=== PATIENT | female | born 1995 | race Caucasian/White ===

== ENCOUNTER 2024-11-02 13:42 | Outpatient (AMB) | payer BC, SELFPAY ==
--- NOTE | 2024-11-02 13:48 | MHC.PC.OV ---
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 Allergies Seasonal Allergies Allergy (Verified 11/02/24 13:51) Congestion, watery eyes and nose lactose Adverse Reaction (Intermediate, Verified 11/02/24 13:51) Rash on face Tobacco use date assessed: 11/02/24 Dental Screening Dental Screen Date: 11/02/24 Did you have a dental visit in the last 12 months?: Yes Did you have a dental problem in the last 6 months where you did not have access to dental care?: No Was dental information given to patient?: Patient has dentist HPI HPI Comments History of Present Illness Details This is a 29-year-old female with a past medical history of anxiety, insomnia, acne and vitamin-D deficiency presenting to establish care. She transferred from my panel at [facility]. She requests a physical exam today. She is seeing a therapist once or twice a week for anxiety and depression. She also sees a psychiatrist. She reports having tried multiple anxiolytic medications that she did not tolerate. Sertraline helped significantly reduce anxiety, but it caused side effects so it was discontinued. She was more recently prescribed clonidine to take at night to help with insomnia and anxiety, but she has not tried it yet. She always feel tired, and she endorses irritability and stress. She also developed seborrheic dermatitis for which she is seeing the bottle labeler. She is on spironolactone for acne. She contemplated whether or not all of this could be due to her oral contraceptive pill so she stopped taking this 2 weeks ago. She does not desire children, and her will not proceed with a vasectomy, so they are using condoms now though she knows the limitations of this. She has discussed with a therapist whether or not she may have a diagnosis of ADHD because she is forgetful and gets overwhelmed. 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 Her is from [place], and they will be going back again this summer to visit his family for an extended time. Last Tdap 09/03/2020. She is up-to-date with her gynecologic exam. History of miscarriage in August 2021. ROS: Constitutional: No unexplained weight loss, fever, chills or night sweats. Eyes: No vision changes, blurry vision, double vision, eye pain, eye redness, eye discharge. ENT: No hearing loss, sneezing, congestion, runny nose or sore throat. Respiratory: No shortness of breath, cough or sputum production. Cardiovascular: No chest pain, chest pressure or chest discomfort. No palpitations or pedal edema. Gastrointestinal: No anorexia, nausea, vomiting or diarrhea. No abdominal pain or blood in stool. Genitourinary: No dysuria, hematuria, urinary frequency. Neurologic: No headache, dizziness, syncope, unilateral weakness, ataxia, numbness or tingling in the extremities. Musculoskeletal: No muscle pain, back pain, joint pain or swelling. Hematologic/Lymphatics: No bleeding or bruising. No painful lymph nodes. Skin: See HPI Endocrine: No cold or heat intolerance. No polyuria or polydipsia. Psychiatric: See HPI. Physical exam: Constitutional: Alert, in no distress. Head: Normocephalic. Eyes: Pupils are equal, round and reactive to light. Extraocular muscles intact. Ear, Nose and Throat: Canals clear. TMs normal. Normal nasal mucosa. No nasal discharge. No oral lesions. Neck: Supple, Full range of motion. No lymphadenopathy. No palpable thyroid masses. Respiratory: Clear to auscultation. Cardiovascular: S1 S2 regular. No murmurs. No carotid bruits. Gastrointestinal: Abdomen soft, non-tender, non-distended. Normal bowel sounds. No palpable masses. Neurologic: No focal neurological deficits. Symmetric patellar reflexes. Moves all extremities spontaneously. Sensation intact bilaterally. Skin: Patient has makeup on so facial rash was not able to be evaluated. She sees Dermatology for this. Musculoskeletal: No gross deformities. Normal range of motion. Extremities: Warm and well perfused. No clubbing, cyanosis or edema. Intact peripheral pulses bilaterally. Psychiatric: Normal mood and affect [facility] Medical History (Updated 11/03/24 @ 08:38 by ANDREA Wells) Depression Seborrheic dermatitis Acne History of miscarriage Routine physical examination Screening for cardiovascular condition Anxiety Insomnia Family History (Updated 11/02/24 @ 13:57 by Jaylin Islas MA) Mother Hyperlipemia Father Hyperlipemia Lung cancer Substance abuse Paternal Grandfather Colon cancer Maternal Grandmother Stroke FHx: mental illness Brother FHx: mental illness Substance abuse Social History (Updated 11/02/24 @ 13:58 by Jaylin Islas MA) Housing: Condominium Housing Other:: with . 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 1. Little interest or pleasure in doing things: several days 2. Feeling down, depressed, or hopeless: not at all 3. Trouble falling or staying asleep, or sleeping too much: nearly every day 4. Feeling tired or having little energy: nearly every day 5. Poor appetite or overeating: several days 6. Feeling bad about yourself - or that you are a failure or have let yourself or your family down: not at all 7. Trouble concentrating on things, such as reading the newspaper or watching television: nearly every day 8. Moving or speaking so slowly that other people could have noticed. Or the opposite - being so fidgety or restless that you have been moving around a lot more than usual: several days 9. Thoughts that you would be better off or of hurting yourself in some way: not at all Total score: 12 Depression Screening Interpretation: Positive Depression Screening Follow-up: In treatment Depression Screening Done: Yes 50372 - PHQ-9 Billing: Patient declined-do not bill Source: Developed by Drs. Varinder Helm, Margo Dickey, Heri Sarmiento and colleagues, with an educational elzbieta from [employer]. Thrive Questionnaire Date Thrive assessed: 11/02/24 I am a: Patient What is your living situation today?: I have a steady place to live Within the past 12 months, did the food you bought not last and you didn't have the money to get more?: Never true Within the past 12 months, did you worry whether your food would run out before you got money to buy more?: Never true Do you have trouble paying for medicines?: No Do you have trouble getting transportation to medical appointments?: No Do you have trouble paying your heating and electricity bill?: No Do you have trouble taking care of your child, family member or friend?: No Do you have trouble with day-to-day activities such as bathing, preparing meals, shopping, managing finances, etc.?: No Are you currently unemployed and looking for a job?: No Are you interested in more education?: No Please select the resources that you would like help with: None Currently or been in a relationship where the following occur: I choose not to answer THRIVE Score: 0 AUDIT C Alcohol Use Questionnaire (AUDIT-C) 1. How often do you have a drink containing alcohol?: Never 2. How many drinks containing alcohol do you have on a typical day when you are drinking?: 1 or 2 3. How often do you have six or more drinks on one occasion?: Never Total Score: 0 Score Reviewed/Action Taken: No SHAAN-7 AMB Questionnaire SHAAN-7 Date SHAAN - 7 assessed: 11/02/24 Feeling nervous, anxious, or on edge: 2 = More than half the days Not being able to stop or control worryin = Not at all Worrying too much about different things: 0 = Not at all Trouble relaxin = Nearly every day Being so restless that it is hard to sit still: 2 = More than half the days Becoming easily annoyed or irritable: 3 = Nearly every day Feeling afraid as if something awful might happen: 1 = Several days Total SHAAN-7 score (0-4 normal; 5-9 mild; 10-14 moderate; 15-21 severe): 11 Source: Developed by Drs. Varinder Helm, Margo Dickey, Heri Sarmiento and colleagues, with an educational elzbieta from [employer]. SHAAN-7 Assessment Billing SHAAN-7 Assessment Tool: SHAAN-7 Assessment 10502 Physical exam (Primary Care) Vital Signs: Last Vital Signs Temp 98.6 F 11/02/24 13:58 Pulse 72 11/02/24 13:58 Resp 14 11/02/24 13:58 BP 102/72 11/02/24 13:58 Pulse Ox 95 11/02/24 13:58 Oxygen Delivery Method Room Air 11/02/24 13:58 BMI result Body Mass Index 25.4 Tobacco/Smoking Status: Tobacco use Status Tobacco use date assessed 11/02/24 11/02/24 14:01 Patient Tobacco Use Status Never used Tobacco 11/02/24 14:01 e-Cigarette/Vaping Use Never Used 11/02/24 14:01 PHQ-9: PHQ-9 Score PHQ-9: Total score 12 11/02/24 14:36 Depression Screening Interpretation: Positive Depression Screening Follow-up: In treatment Thrive Assessment: Date of Thrive Assessment Date Thrive assessed 11/02/24 11/02/24 14:01 Currently or been in a relationship where the following occur: I choose not to answer Coding Level of Care Code Est Pt Prev Care 18-39y(52981) Diagnoses Anxiety F41.9 Screening for cardiovascular condition Z13.6 Routine physical examination Z00.00 Additional Codes SHAAN-7 Assessment Billing - SHAAN-7 Assessment Tool: SHAAN-7 Assessment 72303 ([id number]) Assessment & Plan Assessment & Plan (1) Anxiety: Code(s): F41.9 - Anxiety disorder, unspecified Category: Medical (2) Screening for cardiovascular condition: Code(s): Z13.6 - Encounter for screening for cardiovascular disorders Category: Medical (3) Routine physical examination: Code(s): Z00.00 - Encounter for general adult medical examination without abnormal findings Category: Medical Plan Patient is seen today for a routine physical. As part of this visit we reviewed the following issues, which are considered and essential part of preventative health in this age group: - Breast Cancer screening - Annual Commercial Real Estate Agent exam - Blood pressure screening - Cholesterol screening - Osteoporosis prevention including calcium/vitamin D intake, weight bearing exercise & smoking cessation - Nutritional and exercise counseling - Counseling of injury prevention including fire prevention, smoke alarms and seat belt usage - Screening for depression - Prevention of and/or testing for infectious diseases- declined screening (tested at [facility] per patient) - Education about skin cancer - Recommendations about immunizations - Recommendation of an eye exam - Screening for substance abuse She is closely followed by a therapist. She also sees a psychiatrist. She has stopped control to see if this helps with any of her symptoms. She requested a serum cortisol. I ordered this for the patient. Additional labs as below. She wants to see how the next few months go off of control, and she will follow up if she is still not feeling well. She is also going to discuss possible trial of ADHD meds with her therapist and psychiatrist. Sleep hygiene reviewed. Orders: Orders Lipid Panel 11/02/24 E78.5 - Hyperlipidemia, unspecified, F41.9 - Anxiety disorder, unspecified, G47.00 - Insomnia, unspecified, Z00.00 - Encounter for general adult medical examination without abnormal findings, Z13.6 - Encounter for screening for cardiovascular disorders Vitamin D 25-OH (D2 and D3) 11/02/24 F41.9 - Anxiety disorder, unspecified, G47.00 - Insomnia, unspecified, M85.80 - Other specified disorders of bone density and structure, unspecified site, Z00.00 - Encounter for general adult medical examination without abnormal findings, Z13.6 - Encounter for screening for cardiovascular disorders Cortisol Random 11/02/24 F41.9 - Anxiety disorder, unspecified, G47.00 - Insomnia, unspecified, Z00.00 - Encounter for general adult medical examination without abnormal findings, Z13.6 - Encounter for screening for cardiovascular disorders Complete Blood Count no Diff 11/02/24 F41.9 - Anxiety disorder, unspecified, G47.00 - Insomnia, unspecified, Z00.00 - Encounter for general adult medical examination without abnormal findings, Z13.6 - Encounter for screening for cardiovascular disorders TSH reflex Free T4 11/02/24 F41.9 - Anxiety disorder, unspecified, G47.00 - Insomnia, unspecified, Z00.00 - Encounter for general adult medical examination without abnormal findings, Z13.6 - Encounter for screening for cardiovascular disorders Comprehensive Met. Panel 11/02/24 F41.9 - Anxiety disorder, unspecified, G47.00 - Insomnia, unspecified, Z00.00 - Encounter for general adult medical examination without abnormal findings, Z13.6 - Encounter for screening for cardiovascular disorders
[2024-11-02 13:58] VITALS: BP 102/72; PULSE 72; RESP 14; TEMP 37; O2SAT 95; BMI 25.4
--- OUTSIDE RECORDS SUMMARY | 2024-11-02 15:57 | XMS_ITS | Data Portability ---
Author Organization [facility] ANDREA Enamorado [facility] Health Address [address], [address], [address] [address] [place] [address] Care Team Providers Care Bioassayist Name Role Phone [facility] Primary Care Provider [phone] Assessment Encounter Date Assessment Date Assessment LastModified by Organization Details LastModified Time 09/18/2024 09/18/2024 Alisha is a 29-year-old female with a PMH vitamin D deficiency, anxiety, depression and hormonal acne who presents for OB to [facility] with abdominal bloating/distent ion, skin issues, fatigue, and lactose intolerance. She feels her symptoms and skin issues are related to her gut health. 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 ASSESSMENT : 1. Abdominal bloating 2. Lactose intolerance 3. Fatigue 4. Vitamin D deficiency DIFFERENTIAL DIAGNOSIS : SIBO, celiac, H pylori, dietary triggers PLAN : 1. Check CBC, CMP, celiac, vitamin D, B12, folate, iron studies, TSH, and H pylori stool Ag 2. Increase exercise and water intake to 64 oz daily 3. Decrease carbonation 4. Lactase enzymes 5. Refer to RD 6. Follow up with CASH ROOM CLERK WHOLE PERSON THERAPY REFERRALS: RD REGISTERED DIETITIAN REASON FOR RD REFERRAL: bloating, distention, lactose intolerance DETAILED REASON FOR NON-REFERRAL: BEHAVIORAL HEALTH CARE PROVIDER REASON FOR REFERRAL: DETAILED REASON FOR NON-REFERRAL: Patient is seeing external provider CC ORDERS: Was a lab order placed to Need, [facility], [facility], or [facility]?: Does the healthcare network pricing consultant need to generate a manual prescription alert because the patient has opted out of text messages?: Imaging: N Medical Record Retrieval: N Scope Referral: N External Specialist Referral: N [email or web address] Not available 09/18/2024 10:31:44 10/11/2024 10/11/2024 Assessment 29 yo female with history of vitamin D deficiency, anxiety, depression and hormonal acne and complaints of abdominal bloating/distent ion, skin issues, fatigue, and lactose intolerance who eats a fairly low fiber diet, possibly high in histamines which may be exacerbating her symptoms. This patient may benefit from following a low histamine diet, gradually increasing her fiber intake towards a goal of 25-30 grams of fiber a day, skewing more towards soluble fiber, trying a lactaid pill when she consumes anything that may contain lactose, and increasing her fluid intake to a minimum of 64 fl oz of water a day. Diet history reviewed. The patient is currently on a regular diet. She tries to avoid dairy as much as she can but she really loves it. Generally if she buys her dairy from the farm close by, then she tolerates it better, but if she buys it from the store then she does not tolerate it well. She is going to try taking a lactaid pill prior to eating anything that contains lactose to see if that may be helpful. She does note that greasy foods and fried foods tend to trigger her symptoms, as well as, if she eats a variety of foods like at a libertarian, that will trigger her symptoms also. She is currently eating ~16 grams of fiber a day. She is encouraged to gradually increase her fiber intake towards a goal of 25-30 grams of fiber a day, skewing more towards soluble fiber. She may also try a low histamine diet to see if that may be helpful, especially due to the history of bloating, skin issues, and fatigue. The patient is not sure how much water she drinks per day, but she knows that she is not very good about drinking fluids. She is encouraged to increase her fluid intake to a minimum of 64 fl oz of water a day. Plan 1. Try a low histamine diet 2. Gradually increase her fiber intake towards a goal of 25-30 grams of fiber a day, skewing more towards soluble fiber 3. Try a lactaid pill prior to eating anything that contains lactose 4. Increase her fluid intake to a minimum of 64 fl oz of water a day Patient will be seen again in 4 weeks. At that time I will reassess her diet/fluid intake, symptoms and BM trend. Any labs that have become available at that time will also be reviewed and addressed as needed. Next steps will be pending patient's ability to implement on interventions and her symptom response to above changes. CC Orders (if no orders, select none): None Use RETURN TO OFFICE button below if follow up appointment is not scheduled during visit External Specialist Visit Request: Additional Instructions: Not available 10/11/2024 18:30:18 Plan of Treatment Reminders Order Date Submit Date Provider Last Modified By Organization Details Last Modified Time Details Appointments RD Follow-u p 2024 11:00A M Tasha Duffy RD Not available Not available Not available Lab H pylori Ag, qual immunoas say, stool 2024 025 [facility] ([place] [address] [place], [address], 09/18/2024 10:08:58 CBC w/ auto diff 2024 025 [facility] ([place]), [facility] [place], [address], 09/18/2024 10:11:33 CMP, serum or plasma 2024 025 [facility]), [address] [place], [address], 09/18/2024 10:11:31 tissue transglu taminase iga Ab, serum 2024 025 [facility] ([place] [address] [place], [address], 09/18/2024 10:11:32 iga, quantita tive, serum 2024 025 [facility] [address] [place], [address], 09/18/2024 10:11:32 vitamin D, 25-hydro xy, total, serum 2024 025 [facility]), [facility] [place], [address], 09/18/2024 10:11:31 iron + TIBC + ferritin , serum - FASTING 2024 025 [facility] ([place] [address] [place], [address], 09/18/2024 10:11:32 cobalami n and folate panel, serum 2024 025 [facility] ([place] [address] [place], [address], 09/18/2024 10:11:32 TSH, ultra-se nsitive, serum 2024 025 [facility] ([place] [address] [place], [address], 09/18/2024 10:11:32 Referral None recorded . Procedures None recorded . Surgeries None recorded . Imaging None recorded . Medication Orders None recorded . Patient TargetsNo targets recorded. Patient Instructions Encounter Date Encounter Id Patient Instructions Last Modified By Organization Details Last Modified Time 09/18/2024 [id number] Elva Brito, It was a pleasure meeting with you this morning. Below is a summary of the recommendations we discussed. Please reach out with questions or concerns. 1. Check fasting lab work (please drink plenty of water for hydration) 2. Check stool for H pylori (bacteria in stomach) 3. Increase exercise and work on increasing water intake to 64 oz daily 4. Decrease intake of carbonation 5. Try [id number] lactase enzymes prior to consuming dairy 6. Follow up with CASH ROOM CLERK for bloating As discussed during our session, I've referred you to an [facility] Registered Dietitian. They will provide personalized nutrition care recommendations to help you better manage your condition through diet. These interventions aim to ensure you're well-nourished, improve symptom control, and enhance your overall wellness. Any labs ordered during your visit today will be sent directly to your lab. Please don't hesitate to reach out if you need anything. Through the [facility]cia, you can: Self-schedule appointments with any member of your care team Chat with the Care Coordination team if you have questions Notify me of any new or worsening GI symptoms It was a pleasure meeting with you today. I look forward to seeing you in follow-up in _6_ weeks. For billing information or questions about the cost of care, you can: Email [email or web address] or Click the following link to schedule a call with one of our billing specialists: [email or web address] Not available 09/18/2024 10:31:22 ? CHART SIGN-OFF CHECKLIST ICD-10 Diagnosis Code {{? * }} Patient Instructions {{? * }} ? FOLLOW-UP (RTO REMINDER) {{? * }} [email or web address] Not available 09/18/2024 10:27:08 10/11/2024 [id number] It was nice speaking with you today, Alisha. Below you will find the goals we discussed during our time together: 1. As discussed during our session, we are going to trial a low histamine diet to better understand if histamine is playing a role in your GI symptoms. During this trial, please eliminate as many histamine-containin g foods as well as foods with histamine-releasing capacities as possible, replacing them with low histamine alternatives. Please click on this link to learn more about the low histamine diet, and for a full list of low histamine alternatives that you can eat freely during this trial: https://resources.[employer]/dieta ry-guide/the-low-hi stamine-diet/ 2. Begin to increase the amount of soluble fiber you consume from food and decrease your intake of insoluble fiber. Soluble fiber dissolves in water and is often found in the flesh of fruits and vegetables as well as some grains. Insoluble fiber does not dissolve in water and is often found in the skins and seeds of plants as well as the outer layer of grains. Your goal fiber intake is 25-30 grams of fiber a day. For more information about these two types of fiber and information about foods rich in each, please click here: https://resources.[employer]/dieta ry-guide/soluble-in soluble-fiber/ 3. When consuming lactose-containing dairy foods such as milk, ice cream or soft cheeses, you may trial use of an OTC lactase enzyme to see if this improves your tolerance to these foods. Please follow the timing and dosage directions on the enzyme supplement package. 4. For adequate hydration, ensure that you are consuming a minimum of 64 oz water per day. Please don't hesitate to reach out through the [facility] if you have any questions or concerns. I hope that you have a great few weeks, and look forward to connecting again on 11/09/2024. [email or web address] Not available 10/11/2024 18:25:53 ? CHART SIGN-OFF Return to Office: If follow-up has not been scheduled by the provider, the ? Follow-up section section has been added to the chart & completed. {{? * }} [email or web address] Not available 10/11/2024 18:30:20 Reason for Referral None Reported. Problems Name Problem SNOMED Code Status Onset Date Resolution Date Notes Provider Name and Address Organization Details Recorded Time Acne 51948979 Completed 202409/18/2024 BRANDIE BANSAL [address] [facility],[address] [address], [place], [address], [facility] [place] 09:02:22 Anxiety 82622820 Completed 202409/18/2024 BRANDIE BANSAL [address] [facility],[address] [address], [place], [address], [facility] [place] 09:02:38 Depressive disorder 80003979 Completed 202409/18/2024 BRANDIE BANSAL [address] [facility],[address] [address], [place], [address], [facility] [place] 09:02:44 Vitamin deficiency 09388446 Completed 202409/18/2024 BRANDIE BANSAL [address] [facility],[address] [address], [place], [address], [facility] [place] 5 09:09:20 Abdominal bloating 700509291 Active 2024 BRANDIE BANSAL [address] [facility],[address] [address], [place], [address], [facility] [place] 5 10:05:13 Intolerance to lactose 562251079 Active 2024 BRANDIE BANSAL [address] [facility] [address] [address], [place], [address], [facility], [place] 5 10:05:18 Fatigue 36504723 Active 2024 BRANDIE BANSAL [address] [facility],[address] [address], [place], [address], [facility], [place] 5 10:05:38 Vitamin D deficiency 75646051 Active 2024 BRANDIE BANSAL [address] [facility],[address] [address], [place], [address], [facility], [place] 5 10:09:02 Problem Notes None recorded. Medical Equipment None Reported. Allergies Allergen ID Allergen Name Allergen Category Reaction Reaction Severity Criticality Documentation Date Start Date Code Code System Note Provider Name and Address Organization Details Recorded Time No Known Food Allergies food Not available Not available Not available 10/11/[id number] [facility],[address] [address], [place], [address], [facility], [place] 5 08:05:38 No known drug allergies Medications Name Sig Start Date Stop Date Status Note LastModified by Organization Details LastModified Time ketoconazol e 2 % shampoo APPLY TO SCALP AND LET SIT FOR 5- 10 MINUTES THEN LATHER AND RINSE 1-2 TIMES PER WEEK. MAY ALSO USE NEEDED FACE WASH active Not Available Not Available No t Available clindamycin HCl 300 mg capsule TAKE 1 CAPSULE BY MOUTH 4 TIMES A DAY 09/07 completed Not Available Not Available Not Available fluconazole 150 mg tablet TAKE ONE TABLET BY MOUTH NOW AND REPEAT IN 72 HOURS 09/07 completed Not Available Not Available Not Available pimecrolimu s 1 % topical cream APPLY TO THE FACE AREA TWO TIMES A DAY active Not Available Not Available No t Available clotrimazol e-betametha sone 1 %-0.05 % topical cream APPLY TO THE AFFECTED AND SURROUNDI NG AREAS OF SKIN TOPICALLY TWO TIMES A DAY IN THE MORNING AND EVENING FOR 2 WEEKS 09/07 completed Not Available Not Available Not Available spironolact one 50 mg tablet TAKE ONE TABLET BY MOUTH TWICE A DAY active Not Available Not Available No t Available amoxicillin 875 mg-potosmaru m clavulanate 125 mg tablet TAKE 1 TABLET BY MOUTH TWICE A DAY FOR 10 DAYS 09/07 completed Not Available Not Available Not Available duloxetine 60 mg capsule,del ayed release TAKE 1 CAPSULE BY MOUTH EVERY DAY 09/07 completed Not Available Not Available Not Available Lo Loestrin Fe 1 mg-10 mcg (24)/10 mcg (2) tablet TAKE ONE TABLET BY MOUTH EVERY DAY active Not Available Not Available No t Available Trintellix 5 mg tablet TAKE 1 TABLET BY MOUTH EVERY DAY 09/07 completed Not Available Not Available Not Available Vitals Date Recorded Body height Body mass index (BMI) Body weight Provider Name and Address Organization Details Last Updated DateTime 09/18/2024 160.02 cm 25.7 kg/m2 10276.89 g BRANDIE BANSAL [address] [facility] [address] [place] [address], [address], [facility] [place] 09/18/2024 09:02:05 Date Recorded Body height Body mass index (BMI) Body weight Provider Name and Address Organization Details Last Updated DateTime 10/11/2024 160.02 cm 25.7 kg/m2 59302.89 g Tasha Duffy [address] [facility],[address] [address], [place], [address], [facility] [place] 10/11/2024 08:03:20 Social History Question Answer Notes LastModified by Organizat ion Details LastModified Time Tobacco Smoking Status Never Smoker BRANDIE BANSAL [address] [facility],[address] [place] [address], [address], [facility] [place] 09/18/2024 09:04:04 What Is Your Level Of Alcohol Consumption? None [email or web address] Information not available 09/18/2024 What Is Your Level Of Caffeine Consumption? Occasional [email or web address] Information not available 09/18/2024 What Type Of Diet Are You Following? REGULAR [email or web address] Information not available 09/18/2024 Do You Have A Local GI Provider? No [email or web address] Information not available 09/18/2024 Were You Referred To [facility] By Your Local GI Provider? No [email or web address] Information not available 09/18/2024 Are You Currently Employed? 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 No [email or web address] Information not available 09/18/2024 Do You Or Have You Ever Used Any Other Forms Of Tobacco Or Nicotine? No [email or web address] Information not available 09/18/2024 Sex: Unknown Functional Status Question Answer Note LastModified by Organization D etails LastModified Time What is your exercise level? None Information not available 09/18/2024 Mental Status None recorded. Family History Relationship Description Onset Age of this Age Resolved Age Notes LastModified by Organization Details LastModified Time Maternal Grandfather Malignant tumor of colon pt. added direct ly (08/30) [email or web address] Not available 08/30/2024 15:27:21 Notes:No family history of c olon cancer, advanced polyps, or other GI malignancies among first degree relatives. No family history of IBD or celiac disease Medical History Condition Response Bloating Y Abdominal Pain Y Anxiety/Depression Y Diarrhea Y Nausea/Vomiting Y Irritable Bowel Syndrome Y Gynecological HistoryNo gynecological history recorded. Obstetrics History GPAL:G 0 P 0 0 0 0 Past Encounters Encounter ID Performer Location Encounter Start Date Encounter Closed Date Diagnosis/Indication Diagnosis SNOMED-CT Code Diagnosis ICD10 Code Diagnosis Note [id number] BRANDIE BANSAL [place] [address] [address] 09/18/2024 08:13:46 09/19/2024 17:11:03 Abdominal bloating 586871678 R14.0 Intoleranc e to lactose 666508876 E73.9 Fatigue 50558962 R53.83 Vitamin D deficiency [id number] [facility] [address] [address] 10/11/2024 08:01:46 10/11/2024 18:30:42 Health Concerns Section Related Observation LastModified by Organization Julita ls LastModified Time None Recorded Concern Status LastModified by Organization Details LastModified Time None Recorded Advance Directives Directive None Recorded Payers Encounter Date Sequence Insurance Name Policy Number Policy Bro Covered Member ID Bro Member ID Guarantor Name 09/18/2024 2 *SELF PAY* Soumya Jones 09/18/2024 1 [place] [id number] Alisha Jones [id number] Alisha Jones 10/11/2024 2 *SELF PAY* Soumya Jones 10/11/2024 1 [place] [id number] Alisha Jones [id number] Alisha Jones Notes Date Note Type Note Provider Name and Address Organization Details Recorded Time 09/18/2024 text/html ONBOARDING{{DATE 09/02}}CHIEF COMPLAINT: HPI: Alisha is a 29-year-old female with a H vitamin D deficiency, anxiety, depression and hormonal acne who presents for OB to [facility] with abdominal bloating, yeast overgrowth, low energy, fatigue and difficulty sleeping. She states for the past 3-4 months she is struggling with seborrheic dermatitis on her scalp and skin, feeling more anxious, fatigue, tired and has difficulty sleeping. She states she has also been bloated and distended. She feels these symptoms are all tied in to her gut health. She denies abdominal pain, nausea or vomiting. No weight loss and her appetite is good. She has 1 bowel movement daily that varies from loose to formed. States the loose stools are more when she eats dairy. No melena or hematochezia. She drinks little to no water. She reports an intolerance to dairy as she gets skin break out and loose stools. She has not tried Lactase enzymes. She denies dysphagia or acid reflux. 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 Patient {{denies family history of colon cancer or advanced polyp in first degree relatives* carries a family history of colon cancer or advanced polyp in a first degree relative does not know biologic first degree relatives does not know family history}}and is {{up to date on colorectal cancer screening past due for colorectal cancer screening not yet due for routine colorectal cancer screening* uncertain if due for colorectal cancer screening}} BRANDIE BANSAL [address] [place] [address],[address] [address], [place], [address], [facility] 09/18/2024 10:32:13 10/11/2024 text/html RD: GI History a nd SymptomsReported bypatient.GI History:None GI Symptoms:Bloating; Other: (skin issues, fatigue) Bowel Movement Trend:BM Frequency:1x a day (in the morning); BSS:3-4 (if I eat decent then it's pretty normal), otherwise it is soft 5-6 Onboarding Intake ChecklistThe checklist below represents the sections of the chart that at minimum must be reviewed and/or updated during onboarding. Providers may refer to any additional sections of the chart as needed to complete a thorough assessment {{? * }} ALLERGIES: Add food allergy information (presence or absence){{? * }} PROBLEMS: Review problem list{{? * }} MEDICATIONS: Review medication list and add supplements into the free text section{{? * }} VITALS: Add section + enter height/weight as appropriate Onboarding:{{DATE 03/2025}}Chief Complaint: abdominal bloating/distension, skin issues, fatigue GI Symptom History/Member Background: The patient reports having a lot of issues sleeping. She is very tired all the time with low energy. She also has irregular bowel movements. She has been struggling with skin issues for the past 4-5 months. She has been started on a prescription for her skin issues, which she feels like is helping a little bit. Patient Reported Goals: no more bloating or fatigue, no more skin issues Weight History Weight trend:{{weight stable* unintentional weight loss unintentional weight gain intentional weight loss intentional weight gain}} Details (if weight has changed): I noticed that I feel heavier; I changed my career path around 2 years ago and I gained 2 lbs; not sure if it is control or if my new job I have more access to food and eating Social History Food Insecurity? {{yes no*}} Motivated to Make Dietary Changes? {{yes* no}} Barriers to change: Eating disorder history: {{No eating disorder* anorexia Bu limia BED history of anorexia history of bulimia history of BED other(details)}} Diet History Appetite: {{good* poor}} Current diet: {{Regular* Vegan Vege tarian Gluten free Keto Pescatarian Dairy free Lactose free Low FODMAP Mediterranean Other (detail)}} she tries to limit dairy but she loves it Previous followed or attempted diets: {{none* vegan vegetar stanley pescatarian glute n free dairy free lactose free Low FODMAP Mediterranean other(detail)}} Cooking: {{does not cook meals cooks most meals* does some cooking and/or comfortable cooking}} Eating out frequency: {{less than weekly* 1-2 meals per week 3-5 meals per week 5 or more meals per week most meals}} Eating behaviors: {{eats mindfully* tendency to eat with distractions}} Eating speed: {{fast eater average speed* eats slowly}} Dietary Restrictions -Food intolerances/triggers : try to limit my dairy intake but I do love it, if she eats a mix of different foods like at parties, greasy foods or fried foods -Preferences: -Avoidances: Diet recall ?-Breakfast: typically don't eat breakfast - I am not hungry usually, maybe some fresh orange juice or tea ?-AM Snack: ?-Lunch: ground beef, chips (tortilla chips) with salsa and avocado ?-Afternoon Snack: ?-Dinner: white rice with grilled chicken, beans, corn, and carrots ?-PM Snack: ?-Additional Information (if needed): ~13 grams of fiber a day; she was very tired yesterday morning (she is always getting enough sleep but maybe she is not sleeping deeply so she is still tired she is not sure. She gets 9-10 hours of sleep a night); ~16 grams of fiber a day Fluid Assessment ?-Total Fluid Intake: {{Adequate Inadequate *}} ?-Total Fluid Intake (oz.) I don't drink a lot of water. I don't consume a lot of fluids in general ?-Consumes sugar-sweetened beverage: {{yes* no}} - lemonade, tea ?-Consumes artificially sweetened beverages: {{yes no}} ?-Consumes Milk/Milk alternatives: {{yes no}} ?-Consumes Juice: {{yes no}} ?-Consumes coffee/tea: {{yes no}} ?-Consumes ETOH {{yes no}} ?-Consumes Carbonated Beverages {{yes* no}} - soda - 1 a day or a couple times a week Physical Activity Exercises {{Does not exercise 1-2 times per week* 2-4 times per week 4-6 times per week daily}} Typical workout consists of: I ride horses once a week, I tried to walk when the weather was warmer, but then it got cold again so she hasn't been outside Has access to exercise equipment and/or safe environment to exercise outdoors {{Yes* No}} Labs:{{Recent nutrition related labs reviewed, WNL Recent nutrition related labs reviewed, abnormal findings Recent nutrition related labs not available*}} Details: Tasha Duffy RD [address] [address], [place], [address], [facility] - Integrated ANDREA Verdugo 10/11/2024 18:30:41 OBGyn Episode No OBEpisode recorded.
--- OUTSIDE RECORDS SUMMARY | 2024-11-02 15:57 | XMS_ITS | Data Portability ---
Author Organization [place] - [facility],, GRACIA DOWNS MD Address [address] [place] [address] Assessment No assessment recorded. Plan of Treatment Reminders Order Date Submit Date Provider Last Modified By Organization Details Last Modified Time Details Appointments None recorded. Lab pap test, thinprep, cervical 2015 016 [facility], Cytopathology Service, [address] [place], [address], 6 04:20:27 NG DNA, PCR, genital 2015 016 [facility], Cytopathology Service, [address] [place], [address], 6 04:20:27 chlamydia sp, culture, unspecifie d specimen 2015 016 [facility], Cytopathology Service, [address] [place], [address], 6 04:20:30 Referral None recorded. Procedures None recorded. Surgeries None recorded. Imaging None recorded. Medication Orders Lo Loestrin Fe 1 mg-10 mcg (24)/10 mcg (2) tablet 2015 016 [id number], [address] [place], [address], 6 04:20:30 Patient TargetsNo targets recorded. 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 She has been sexually active without control, since age 17, has had 7 partners, she did use the OCP briefly 2 years ago but she gained 10 pounds and stopped it. We discussed the first day for Lo Loestrin start process for the OCP, that the pill will not be effective for the first month of use, and the interaction with antibiotics. We discussed the need to use a condom during antibiotic use and also for a minimum of three weeks following the use of antibiotics. We discused interactions with some herbal and OTC meds, such as Saint Jose's Wort. Possible side effects, and the stated risk of one in 10,000 to develop a blood clot/ DVT/PE were also discussed. All questions answered, rx to be called in to pharmacy. She appears to be doing well. She is advised to get 1500 mg of calcium daily into her diet and supplements combined. There is a health benefit with adequate vitamin D supplementation to at least 400 units daily, daily aerobic exercise of 30 minutes, and stress reduction. Monthly self breast exam was taught, and stressed, and is advised to call if she discovers any new mass in the breast. Seat belt use for herself and passengers are advised. There are significant health benefits of becoming and remainig fit, with an optimal BMI. There is a potential reduction in chronic discomfort, diminished risks of hypertension, diabetes, and heart disease with the proper weight management. With a recommended BMI there can be improved mobility as she ages. Strategies to reach and maintain her target weight were discussed in detail. [email or web address] Not available 01/20/2016 09:27:48 Reason for Referral None Reported. Medical Equipment None Reported. Allergies No known drug allergies Medications Name Sig Start Date Stop Date Status Note LastModified by Organization Details LastModified Time azithromycin 250 mg tablet 01/19 completed Not Available Not Available Not Available citalopram 10 mg tablet 01/19 completed Not Available Not Available Not Available sertraline 50 mg tablet 01/19 completed Not Available Not Available Not Available Lo Loestrin Fe 1 mg-10 mcg (24)/10 mcg (2) tablet Take 1 tablet every day by oral route. 2015 active Not Available Not Available Not Avai lable Vitals Date Recorded Heart rate Body height Body weight Body mass index (BMI) Systolic blood pressure Diastolic blood pressure Provider Name and Address Organization Details Last Updated DateTime 6 65 /min 161.29 cm 19794.0 1 g 22.7 kg/m2 103 mm[Hg] 65 mm[Hg] Daphnie Plascencia [place] [facility] in [facility], 6 08:21:44 Social History Question Answer Notes LastModified by Organizat ion Details LastModified Time Tobacco Smoking Status Never Smoker Daphnie Plascencia [place] [facility] in [facility], 01/20/2016 08:27:43 What Is Your Level Of Alcohol Consumption? None Information not available 01/20/2016 What Is Your Level Of Caffeine Consumption? None Information not available 01/20/2016 What Type Of Diet Are You Following? REGULAR Information not available 01/20/2016 Which Illicit Or Recreational Drugs Have You Used? None Information not available 01/20/2016 Do You Reside In Or Have You Traveled To An Area Where Ebola Virus Transmission Is Active? No Information not available 01/20/2016 Education 4 Year College [employer] 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 Female Information not available 01/20/2016 Marital Status Single Informatio n not available 01/20/2016 Are You Sexually Active? Yes Information not available 01/20/2016 How Much Tobacco Do You Smoke? No Information not available 01/20/2016 General Stress Level Medium Information not available 01/20/2016 How Many Years Have You Smoked Tobacco? 0 Information not available 01/20/2016 Have You Recently (within The Last 12 Weeks, Or During A Current ) Traveled To Or Lived In A Zika-affected Area? No Information not available 01/20/2016 Sex: Unknown Functional Status Question Answer Note LastModified by Organization D etails LastModified Time What is your exercise level? None Information not available 01/20/2016 Mental Status None recorded. Family History Relationship Description Onset Age of this Age Resolved Age Notes LastModified by Organization Details LastModified Time Maternal Grandfather Malignant tumor of colon suze Not available 2015 08:25:33 Maternal Aunt Malignant tumor of breast suze Not available 2015 08:26:03 Mother Hypertensive disorder suze Not available 2015 08:26:47 Medical History Condition Response Anesthesia complications N High Blood Pressure N Candidate for MyRisk panel N Autoimmune Condition N Kidney or Bladder Problems N Thyroid Problems N Depression N Lung Disease N GI Problems Y Defects or Inherited Disease Y Anemia N History of Ovarian Cancer N History of Breast Cancer N TAMIA exposure N BRCA testing in past N Osteopenia N Psychiatric Illness N Anxiety Disorder Y Diabetes N Arthritis N Headaches or Migraines N Infertility N Asthma N History of Cancer N Endometriosis N Hepatitis N Heart Disease N Hypertension N Osteoporosis N Gynecological History Statement/Question Response Dysmenorrhea Y Flow Moderate Date of LMP 01/12/2016 Frequency of Cycle (Q days) 28 Menses Monthly Y Duration of Flow (days) 4 Age at Menarche 16 Current Control Method None Obstetrics History GPAL:G 0 P 0 0 0 0 Past Encounters Encounter ID Performer Location Encounter Start Date Encounter Closed Date Diagnosis/Indication Diagnosis SNOMED-CT Code Diagnosis ICD10 Code Diagnosis Note [id number] MD GRACIA Neville MD [address] [place] [id number] 01/20/2016 08:04:43 01/20/2016 12:06:36 Specialized medical examination 88884810 Z01.419 Venereal d isease screening 346778761 Z11.3 Health Concerns Section Related Observation LastModified by Organization Detai ls LastModified Time None Recorded Concern Status LastModified by Organization Details LastModified Time None Recorded Advance Directives Directive None Recorded Payers Encounter Date Sequence Insurance Name Policy Number Policy Bro Covered Member ID Bro Member ID Guarantor Name 01/20/[address] [place] [address] [id number] Keon Jones [id number] Alisha Jones Notes Date Note Type Note Provider Name and Address Organization Details Recorded Time 01/20/2016 text/html She is here as a new patient for annual exam, 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 She has been sexually active without control, since age 17, has had 7 partners, she did use the OCP briefly 2 years ago but she gained 10 pounds and stopped it. Gracia Downs MD [address], [place], [address], [place] [facility], 01/20/2016 09:28:17 OBGyn Episode No OBEpisode recorded.
== END 2024-11-02 14:46 | disposition home or self-care (01) ==
LOC: HO.HMCFM 13:43
PROVIDERS: PCP Physician Assistant Medical; Visit Provider Physician Assistant Medical
DX: F41.9 Anxiety disorder, unspecified (principal); Z13.6 Encounter for screening for cardiovascular disorders; Z00.00 Encounter for general adult medical examination without abnormal findings

== ENCOUNTER → 2024-11-02 13:42 | Outpatient (BNVA) | payer BC, SELFPAY | PROVIDERS: PCP Physician Assistant Medical; Visit Provider Physician Assistant Medical | DX: Z00.00 Encounter for general adult medical examination without abnormal findings (principal); F41.9 Anxiety disorder, unspecified; E78.5 Hyperlipidemia, unspecified; G47.00 Insomnia, unspecified | CPT/HCPCS: 96127 ==

== ENCOUNTER 2024-11-02 14:52 | Outpatient (REF) | payer BC, SELFPAY ==
[2024-11-02 17:57] LABS: Hematocrit 41.7 % (37.0-47.0); Hemoglobin 14.3 g/dl (12.0-16.0); Mean Corpuscular HGB Conc 34.3 g/dl (31.0-35.0); Mean Corpuscular Hemoglobin 30.4 pg (27.0-33.0); Mean Corpuscular Volume 88.7 fL (80.0-98.0); Mean Platelet Volume 11.3 fL (9.4-12.3); Platelet Count 183 X10*3/uL (160-400); Red Cell Distribution Width 11.9 % (11.0-16.0); White Blood Count 5.7 X10*3/uL (4.8-10.8)
[2024-11-02 18:16] LABS: Alanine Aminotransferase 47 U/L (0-31); Albumin Level 4.1 g/dL (3.5-5.0); Alkaline Phosphatase 44 U/L (39-117); Anion Gap 13 (12-20); Aspartate Amino Transferase 39 U/L (5-31); Bilirubin Total 0.9 mg/dL (0.0-1.0); Blood Urea Nitrogen 6 mg/dL (9-16); Calcium 9.3 mg/dL (8.4-10.2); Carbon Dioxide 26 mmol/L (22-29); Chloride 102 mmol/L (96-108); Cholesterol 180 mg/dL (<200); Estimated Glomerular Filt Rate > 60; Glucose Random 83 mg/dL (60-115); HDL Cholesterol 52 mg/dL (>40); LDL Cholesterol Calculated 118 mg/dL (<100); Potassium 3.8 mmol/L (3.3-5.1); Sodium 137 mmol/L (135-145); Total Protein 7.2 g/dL (6.5-8.0); Triglycerides 52 mg/dL (<150)
[2024-11-02 18:31] LABS: TSH reflex Free T4 0.81 uIU/mL (0.32-4.0)
[2024-11-06 15:18] LABS: Vitamin D 25-OH, D2 <4 ng/mL; Vitamin D 25-OH, D3 19 ng/mL; Vitamin D 25-OH, Total 19 ng/mL (30-100)
== END 2024-11-02 14:53 | disposition home or self-care (01) ==
LOC: HO.WFDLDS 14:52
PROVIDERS: Visit Provider Physician Assistant Medical
DX: Z00.00 Encounter for general adult medical examination without abnormal findings (principal); E78.5 Hyperlipidemia, unspecified; G47.00 Insomnia, unspecified; F41.9 Anxiety disorder, unspecified; M85.80 Other specified disorders of bone density and structure, unspecified site; Z13.6 Encounter for screening for cardiovascular disorders
CPT/HCPCS: 36415; 80053; 80061; 82306; 82533; 84443; 85027